=== PATIENT | female | born 1985 | race Caucasian/White ===

== ENCOUNTER → 2024-09-03 | Outpatient (CLI) | payer OTHER, SELFPAY ==
--- NOTE | 2024-09-03 11:28 | XR_ITS ---
Examination: Pelvic ultrasound, transabdominal, complete Technique: Transabdominal ultrasound of the pelvis performed using grayscale imaging Date and time of exam: September 03, 2024 1155 hours INDICATIONS: Pelvic tenderness and vaginal bleeding beginning July 2024 FINDINGS: Uterus 10.4 x 5.1 x 6.3 cm Irregular intrauterine gestational sac 0.7 cm correspondences 6 weeks 4 days gestational age No cardiac motion Right ovary 3.7 x 3.3 cm arterial flow, 22 mm cyst Left ovary 2.0 x 1.9 cm arterial flow IMPRESSION: Empty intrauterine gestational sac corresponding to 6 weeks 4 days gestational age, no pole, no cardiac activity Recommend short-term follow-up examination to exclude demise
== END | disposition home or self-care (01) ==
PROVIDERS: Referring Provider Family Medicine; Visit Provider Family Medicine
DX: N93.9 Abnormal uterine and vaginal bleeding, unspecified (principal)
CPT/HCPCS: 76856

== ENCOUNTER → 2024-09-17 | Outpatient (CLI) | payer OTHER, SELFPAY ==
--- NOTE | 2024-09-17 09:54 | XR_ITS ---
Examination: Pelvic ultrasound, transabdominal, complete Technique: Transabdominal ultrasound of the pelvis performed using grayscale imaging Date and time of exam: September 17, 2024 1018 hours INDICATIONS: Vaginal bleeding beginning 2 weeks ago FINDINGS: Uterus 10.6 x 4.2 x 5.0 cm No intrauterine gestation uterine mass or retained products Endometrial stripe 13 mm Right ovary 4.2 x 2.4 x 3.0 cm arterial flow, 19 mm follicular cyst Left ovary 2.6 x 1.4 x 1.5 cm arterial flow IMPRESSION: No intrauterine gestation, uterine mass or retained products of conception
== END | disposition home or self-care (01) ==
PROVIDERS: PCP Family Medicine; Referring Provider Family Medicine; Visit Provider Family Medicine
DX: N93.9 Abnormal uterine and vaginal bleeding, unspecified (principal)
CPT/HCPCS: 76856

== ENCOUNTER 2024-09-22 06:20 | Emergency (ER) | payer OTHER, SELFPAY ==
--- NOTE | 2024-09-22 06:23 | EKG_ITS ---
[facility] Test Date: 2024-09-22 Pat Name: TU JONES Department: Room: - Gender: Female Server: : 1985 Requested By: ED Temporary Provider Order Number: [id number] Reading MD: ED Temporary Provider Measurements Intervals [place] Rate: 69 P: 58 CO: 147 QRS: 86 QRSD: 86 T: 59 QT: 382 QTc: 409 Interpretive Statements SINUS RHYTHM LOW QRS VOLTAGE IN PRECORDIAL LEADS [QRS DEFLECTION < 1.0 mV IN CHEST LEADS] Compared to ECG 03/04/2023 12:52:34 Low QRS voltage now present /store/S0/[id number].pdf
[2024-09-22 06:30] VITALS: BP 157/103; PULSE 70; RESP 18; TEMP 36.6; O2SAT 99
--- NOTE | 2024-09-22 06:33 | XR_ITS ---
Examination: PA lateral chest 2 views Technique: Upright PA lateral chest 2 views Exam date and time: September 22, 2024 0648 hrs. Comparison: March 04, 2023 Indications: Onset chest pain today Findings: Normal heart size Lungs are clear The osseous structures are intact Impression: No active disease
--- NOTE | 2024-09-22 06:34 | PD.EDRME ---
Rapid Medical Screening Exam RME Arrival date/time: 09/22/24 06:20 38-year-old female with past medical history of elevated troponin presents emergency department complaining of left-sided chest pain that radiates towards left arm she describes as pressure 6 out of 10. Patient reports pain started today after leaving work around 5 am and onset was sudden. Chief Complaint: Chest Pain Time Seen by Provider: 09/22/24 06:26 Vital signs: Vital Signs Temperature 97.9 F 09/22/24 06:30 Pulse Rate 70 09/22/24 06:30 Respiratory Rate 18 09/22/24 06:30 Blood Pressure 157/103 H 09/22/24 06:30 Pulse Oximetry (%) 99 09/22/24 06:30 Oxygen Delivery Method Room Air 09/22/24 06:30 Vital signs reviewed by provider: Yes
--- NOTE | 2024-09-22 07:33 | EDNOTE_ITS ---
ED Chest Pain RME/HPI General Chief Complaint: Chest Pain Stated Complaint: CHEST PAIN Time Seen by Provider: 09/22/24 06:26 Arrival date/time: 09/22/24 06:20 RME / HPI RME / HPI narrative: 09/22/24 06:20 RME: 38-year-old female with past medical history of elevated troponin presents emergency department complaining of left-sided chest pain that radiates towards left arm she describes as pressure 6 out of 10. Patient reports pain started today after leaving work around 5 am and onset was sudden. 38 y/o female who has a history of recurrent chest pain who presents with left- sided chest pain rating to the left arm. Pain is described as a pressure-like sensation that started while at rest when she was driving home. She was driving home from work at the [employer] where she did not exhibit any chest pain during exertion throughout her shift. She denies any recent illness. She has had an elevated troponin in the past that was worked up and otherwise negative. Related Data Previous Rx's ?Medication ?Instructions ?Recorded aspirin 81 mg tablet,delayed 81 mg PO QDAY #30 tabs 03/10/19 release (Arturo Low Dose Aspirin) Allergies Allergy/AdvReac Type Severity Reaction Status Date / Time metronidazole Allergy Severe Rash Verified 03/04/23 12:36 ED Exam Narrative Physical exam: GENERAL APPEARANCE: AxOx4, generally well-appearing, no acute distress. HEENT: NC, AT. MMM. EOMI, clear conjunctiva, oropharynx clear. NECK: Supple without lymphadenopathy. No stiffness or restricted ROM. HEART: Normal rate and regular rhythm, normal S1/S1, no m/r/g LUNGS: CTAB, moving air well. No crackles or wheezes are heard. ABDOMEN: Soft, nontender, nondistended with good bowel sounds heard. BACK: No midline C/T/L spine pain or deformity, No CVAT, no obvious deformity. EXTREMITIES: Without cyanosis, clubbing or edema. MUSCULOSKELETAL: FROM of all major joints, no chest tenderness NEUROLOGICAL: Grossly nonfocal. Alert and oriented, moving all 4 extremities. CN not formally tested but appear grossly intact. Observed to ambulate with normal gait. Skin: Warm and dry without any rash. Course Quality Measures none Orders Category Date Time Status EKG (ED ONLY) *Do not use* NOW Care 09/22/24 06:23 Completed EKG (ED Only) Stat Exams 09/22/24 06:23 Draft XR chest 2V Stat Exams 09/22/24 06:33 Completed Troponin I Stat Lab 09/22/24 07:30 Completed Diazepam [Valium] Med 09/22/24 07:24 Discontinued 5 mg PO X1 ONE Vital Signs Vital signs: Vital Signs Temperature 97.9 F 09/22/24 06:30 Pulse Rate 70 09/22/24 06:30 Respiratory Rate 18 09/22/24 06:30 Blood Pressure 157/103 H 09/22/24 06:30 Pulse Oximetry (%) 99 09/22/24 06:30 Oxygen Delivery Method Room Air 09/22/24 06:30 SpO2 99% on room air, not hypoxic Procedures -ED EKG Interpretation #1: Date of EK09/22/24 Time of EK:33 Rate: 69 Interpretation: Interpreted by me EKG Impression: Normal sinus rhythm, No acute ST-T changes, Normal intervals and Normal axis Chest Pain MDM Narrative MDM Narrative:: 40-year-old otherwise healthy who presents with substernal chest pain. Without utilizing the troponin, heart score is low, but she has had elevated troponin in the past therefore single troponin was ordered in the emerged part with nega tigini. Chest x-ray was ordered via the RME process which on my interpretation shows no acute cardiopulmonary findings, no cardiomegaly, no bony abnormalities, I reviewed the radiology interpretation and agree. Clinically exam is consistent more with anxiety. She is appropriate for outpatient follow-up. Patient data External records reviewed:: [facility] previous records Clinical information provided by:: patient Social determinants that could affect healthcare access:: none Patient has the following chronic illnesses:: none How is presenting disease/condition affected by chronic disease/condition?: no chronic disease Evaluation data The following diagnostics were reviewed and interpreted by me:: lab results and radiology exam(s) Lab and/or radiology exams considered but not ordered:: None Interpretation Summary: As per narrative Medications / Prescriptions Medications or Prescriptions considered but not ordered:: None Medication administrations:: Medication Administration History Discontinued Medications Diazepam (Diazepam 5 Mg Tablet) 5 mg PO X1 ONE Stop: 09/22/24 07:25 Last Admin: 09/22/24 07:45 Dose: 5 mg Documented By: AA Above Consultations Consultation(s) initiated? (list below): No Diagnosis Chest Pain Differential Diagnosis: atypical chest pain, st elevation myocardial infarction, costochondritis and other (Anxiety, GERD) Most likely diagnosis given after review of the tests above:: Chest pain, NOS Admission Indicated Admission indicated?: not indicated Admission Request Was there a request for admission?: No Disposition Plan Disposition Plan: Discharge Discharge Attestation Discharge Attestation: The patient and all family members were given an opportunity to ask questions and understood the discharge instructions. Discharge instructions specifically effects, indications for sooner follow up or return to the emergency department, and the expected course of current diagnosis. Patient condition: Stable Discharge Plan Plan Patient Disposition: HOME (Self Care) Prescriptions/Referrals Prescriptions/Med Rec: No Action aspirin [Arturo Low Dose Aspirin] 81 mg tablet,delayed release (DR/EC) 81 mg PO QDAY Qty: 30 0RF Referrals: Ya Stone MD [Primary Care Provider] - In 1 week Problem List Clinical Impression: Chest pain Patient/Caregiver Discharge Instructions Education Materials: ED Chest Pain, Uncertain Cause Additional Instructions: Follow-up with your primary care doctor in 2 to 3 days if symptoms or not improving. You can return to the emergency department sooner symptoms worsen or if you notice any new, concerning issues. Print Language: Hungarian Stand Alone Forms: Margarita Award Info., Patient Portal Info Letter
[2024-09-22] MEDS: DIAZEPAM 5 MG TABLET PO (07:45)
[2024-09-22 07:51] VITALS: BMI 32.9
[2024-09-22 07:52] VITALS: PULSE 70
--- NOTE | 2024-09-22 07:57 | PC.NURSE ---
Patient presents to ED with c/o nonradiating left side chest pain that began after arriving home from work about 0545 am. Patient is alert and oriented, ambulatory without assistance. Patient with hx of angiogram and angina. Patient placed on press technician, updated with plan of care and call light placed within reach.
[2024-09-22 08:04] LABS: Troponin I < 0.002 ng/mL (0.0-0.045)
[2024-09-22] MEDS: ACETAMINOPHEN 325 MG TABLET 650 MG PO (08:57)
[2024-09-22 09:05] VITALS: BP 107/74; PULSE 72; RESP 19; O2SAT 99
== END 2024-09-22 09:05 | disposition home or self-care (01) ==
PROVIDERS: Emergency Provider Emergency Medicine; PCP Family Medicine
DX: R07.89 Other chest pain (principal)
CPT/HCPCS: 36415; 71046; 80053; 80307; 81001; 83735; 83880; 84484; 84703; 85025; 85610; 85730; 93005; 99283; A9270

== ENCOUNTER 2024-10-24 22:21 | Emergency (ER) | payer OTHER, SELFPAY ==
[2024-10-24 22:22] VITALS: PULSE 83; O2SAT 99
--- NOTE | 2024-10-24 22:30 | PD.EDCHEST ---
ED Chest Pain RME/HPI General Chief Complaint: Chest Pain Stated Complaint: CHEST PAIN Time Seen by Provider: 10/24/24 22:24 Arrival date/time: 10/24/24 22:21 RME / HPI RME / HPI narrative: Dr. Delgado?s Main ED Evaluation: 38yo female with a history of NSTEMI in 2019, recurrent chest pain BIBA from home presents to the ED for a chief complaint of intermittent sharp left-sided chest pain x 1 month. Patient states her chest pain significantly worsened over the last 1-2 hours, reporting it worsens with movement and on palpation, so she came in for evaluation. EMS administered 0.4mg nitroglycerin sublingual en route without improvement of symptoms. Patient denies any shortness of breath, nausea, vomiting, fever, chills or any other associated symptoms. 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 Related Data Previous Rx's ?Medication ?Instructions ?Recorded aspirin 81 mg tablet,delayed 81 mg PO QDAY #30 tabs 03/10/19 release (Arturo Low Dose Aspirin) Allergies Allergy/AdvReac Type Severity Reaction Status Date / Time metronidazole Allergy Severe Rash Verified 03/04/23 12:36 Review of Systems Review of Systems Systems Reviewed: All systems reviewed, normal except as documented Narrative Review of Systems: Gen: No fever, no chills, no weight loss EYES: No discharge, no visual changes, no pain HEENT: No ear pain, no congestion, no sore throat PULM: No shortness of breath, no cough, no congestion CV: + chest pain, no dyspnea on exertion, no palpitations GI: No nausea, no vomiting, no diarrhea, no pain, no constipation : No frequency, no urgency, no dysuria Musc/skel: No joint pain, no back pain Skin: No rash. Warm and dry. Psyc: No hallucinations, no depression Heme/Lymph: No easy bleeding or bruising tendencies Neuro: No weakness, no headache Past Medical History Past Medical History NEUROLOGIC: Negative Neurological Disorders CARDIAC: Positive Myocardial Infarction, Cardiac Arrhythmia, Angina and Hypercholesterolemia; Negative Cardiac Disorders or Congestive Heart Failure RESPIRATORY: Negative Chronic Obstructive Pulmonary Disease (COPD) GASTROINTESTINAL: Positive Gastrointestinal Disorders, Hiatal Hernia and Gastroesophageal Reflux Disease GENITOURINARY: Negative Genitourinary Disorders or Renal Disease REPRODUCTIVE: Positive Previous Pregnancies MUSCULOSKELETAL: Negative Musculoskeletal Disorders ENDOCRINE: Negative Endocrine Disorders, Diabetes Mellitus Type 1 or Diabetes Mellitus Type 2 HEMATOLOGIC: Negative Blood Disorders PSYCHO/SOCIAL: Positive Recreational Drug Use, Depression, Anxiety and Self-Mutilation OTHER HISTORY: Positive Hospitalization Surgical History SURGICAL: Positive Angiogram and Eye Surgery Social History SMOKING STATUS: Never smoker SUBSTANCE USE: does not use ED Exam Narrative Physical exam: GENERAL APPEARANCE: alert and oriented x 4, well-developed, well-nourished, no acute distress VITALS: All vitals were reviewed and the pulse ox is % on room air, which is normal according to my interpretation. HEENT: Normocephalic, atraumatic; pupils equal, round, reactive to light; EOMI; mucous membranes pink, moist; oropharynx clear NECK: Supple LUNGS: CTABL; no wheezes, no rales, no rhonchi HEART: Regular rate, regular rhythm; normal S1, S2; no murmurs; tenderness on palpation of the left pectoralis muscle ABDOMEN: non distended; normal BS; soft, no tenderness, no guarding, no rebound; no masses, no organomegaly, no hernia BACK: no CVA tenderness EXTREMITIES: atraumatic; no edema NEUROLOGIC: awake; alert and oriented x4; cranial nerves II-XII grossly intact; no focal sensory or motor deficits PSYCHIATRIC: appropriate mood and affect SKIN: warm, dry, normal color; no rashes Course Course Course Narrative: CXR is ordered for determining the etiology of chest pain. Quality Measures none Orders Category Date Time Status CT Screening NOW Care 10/24/24 22:42 Completed Web Operations Administrator STAT Care 10/24/24 22:32 Completed Continuous Pulse Oximetry ONCE Care 10/24/24 22:32 Completed EKG (ED ONLY) *Do not use* NOW Care 10/24/24 22:32 Completed Insert IV STAT Care 10/24/24 22:[address] angio chest Stat Exams 10/24/24 22:42 Taken EKG (ED Only) Stat Exams 10/24/24 22:32 Draft XR chest 1V portable Stat Exams 10/24/24 22:32 Completed B-Type Natriuretic Peptide Stat Lab 10/24/24 23:10 Completed CBC Stat Lab 10/24/24 23:10 Completed Comprehensive Metabolic Panel Stat Lab 10/24/24 23:10 Completed HCG,Qualitative Serum Stat Lab 10/24/24 23:10 Completed Lipase Stat Lab 10/24/24 23:10 Completed Magnesium Stat Lab 10/24/24 23:10 Completed Troponin I Stat Lab 10/24/24 23:10 Completed HYDROmorphone INJ [Dilaudid Inj] Med 10/24/24 22:40 Discontinued 0.5 mg IVP X1 ONE Ketorolac Inj [Toradol Inj] Med 10/24/24 22:32 Discontinued 15 mg IVP X1 ONE Ondansetron Inj [Zofran Inj] Med 10/24/24 22:40 Discontinued 4 mg IV X1 ONE Vital Signs Vital signs: Vital Signs Pulse Rate 68 10/24/24 22:45 Chest Pain MDM Narrative MDM Narrative:: Scribe Attestation: 10/24/24 - Khushboo Willis am scribing for and in the presence of Dr. Delgado. Patient data External records reviewed:: [facility] previous records (Per chart review, patient was seen here on 09/22/24 for chest pain.) Clinical information provided by:: patient Social determinants that could affect healthcare access:: none Patient has the following chronic illnesses:: NSTEMI How is presenting disease/condition affected by chronic disease/condition?: uneffected by Evaluation data The following diagnostics were reviewed and interpreted by me:: lab results, radiology exam(s) and EKG tracing(s) Lab and/or radiology exams considered but not ordered:: none Interpretation Summary: CBC is normal, CMP is normal, troponin is normal, HCG is negative, according to my interpretation. EKG done at 2300, NSR, rate of 65, normal axis, no ectopy, no acute ischemia, according to my interpretation. -------- [place] [facility] Report Signed Patient: TU JONES [facility]. Record#: [id number] Birthdate: 1985 Age/Sex: 38 / F Location: [facility] Attending Dr: Ordering Physician: Aurelio Delgado MD Date of Service: 10/24/24 Procedure(s): XR chest 1V portable Accession Number(s): [id number] cc: León Dunbar MD; Orin Cooper; Aurleio Delgado MD~ Examination: AP chest single view TECHNIQUE: AP portable upright chest single view Presented time: October 24, 2024 at 10:45 PM Comparison September 22, 2024 INDICATIONS: Central chest pain today. FINDINGS: Normal heart size The lungs are clear. The osseous structures are intact IMPRESSION: No active disease Dictated By: León Dunbar MD Signed By: <Electronically signed by León Dunbar MD in OV> 10/24/24 2319 [place] Preliminary Report Draft Patient: TU JONES [facility]. Record#: [id number] Birthdate: 1985 Age/Sex: 38 / F Location: [facility] Attending Dr: Ordering Physician: Date of Service: Procedure(s): Accession Number(s): cc: ~ CT angiogram of the chest with intravenous contrast (axial sections with sagittal and coronal reformats): October 25, 2024 at 0002 hours Clinical History: Left sided sharp chest pain x one month. Technique:Helical axial sections with sagittal and coronal reformats of the chest were obtained with intravenous contrast. Iterative reconstruction technique was employed to reduce patient radiation exposure. 3D/MIP reconstructed images were also provided. Contrast Dose: Not available at the time of interpretation. Radiation Dose: Total exam DLP 458 mGy/cm. Comparison: None. Findings: There is no filling defect within the pulmonary artery divisions to suggest pulmonary thromboembolism. The mediastinum demonstrates no evidence of mass or lymphadenopathy. The thoracic aorta is unremarkable. There is no pericardial effusion. The lungs are clear. No evidence of pleural effusion or pneumothorax. The osseous structures are unremarkable. The visualized upper abdominal viscera are unremarkable. Impression: No CT evidence of pulmonary thromboembolism or other acute intrathoracic pathology. Report Electronically Signed By: Juan Luis Kiser 10/25/2024 1:02:58 AM [EST] Medications / Prescriptions Medications or Prescriptions considered but not ordered:: none Medication administrations:: Medication Administration History Discontinued Medications Hydromorphone HCl (Hydromorphone Inj 2 Mg/Ml Vial) 0.5 mg IVP X1 ONE Stop: 10/24/24 22:41 Last Admin: 10/24/24 22:54 Dose: 0.5 mg Documented By: EF Ketorolac Tromethamine (Ketorolac Inj 30 Mg/Ml Vial) 15 mg IVP X1 ONE Stop: 10/24/24 22:33 Last Admin: 10/24/24 22:55 Dose: 15 mg Documented By: EF Ondansetron HCl (Ondansetron Inj 2 Mg/Ml Inj 2 Ml) 4 mg IV X1 ONE; Protocol Stop: 10/24/24 22:41 Last Admin: 10/24/24 22:54 Dose: 4 mg Documented By: EF see above Consultations Consultation(s) initiated? (list below): No Diagnosis Chest Pain Differential Diagnosis: pneumothorax and other (STEMI, NSTEMI, pericarditis, myocarditis, pneumonia, pleurisy) Most likely diagnosis given after review of the tests above:: see below Admission Indicated Admission indicated?: not indicated Admission Request Was there a request for admission?: No Disposition Plan Disposition Plan: Discharge Discharge Attestation Discharge Attestation: The patient and all family members were given an opportunity to ask questions and understood the discharge instructions. Discharge instructions specifically effects, indications for sooner follow up or return to the emergency department, and the expected course of current diagnosis. Patient condition: Stable Discharge Plan Plan Patient Disposition: HOME (Self Care) Disposition Comment: Stable for discharge Patient condition on transfer: Stable Prescriptions/Referrals Prescriptions/Med Rec: No Action aspirin [Arturo Low Dose Aspirin] 81 mg tablet,delayed release (DR/EC) 81 mg PO QDAY Qty: 30 0RF Referrals: Orin Cooper FNP [Primary Care Provider] - In 1 week Problem List Clinical Impression: Atypical chest pain Patient/Caregiver Discharge Instructions Discharge Activity: activity as tolerated Education Materials: ED Chest Pain, Uncertain Cause, ED Pain, Acute, Uncertain Cause Additional Instructions: Please return to the emergency department for any worsening or any further medical problems Follow-up with your primary care doctor within the next several days. Print Language: Citizen Of [place] Stand Alone Forms: Margarita Award Info., Patient Portal Info Letter
--- NOTE | 2024-10-24 22:32 | EKG_ITS ---
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
--- NOTE | 2024-10-24 22:42 | XR_ITS ---
Examination: CTA chest with intravenous contrast 2-D reconstructions 3-D reconstructions, vascular Date and time of exam: October 25, 2024 at 0002 hours INDICATIONS: Sharp left-sided chest pain beginning one month ago CTDI: vol (mGy) and 23.25 DLP: (mGycm) 458 Technique: Multiple axial sections of the thorax have been obtained. 3 mm slice thickness, from below the hemidiaphragms to above the apices of the lungs. Mediastinal and lung density settings have been obtained. 2-D sagittal and coronal reconstructions. 3-D angiographic renderings, 3-D volume renderings, 3D post processing, vascular maximum intensity projections obtained. Contrast administered is 100 cc of Isovue 370. Low dose protocols were performed. One or more of the following dose reduction techniques were used; automated exposure control, adjustment of the mA and/or KV according to patient size, use of iterative reconstruction technique. Findings: No thoracic aortic aneurysmal dilatation or dissection Main pulmonary artery segment 29 mm No pulmonary artery filling defects No paratracheal tracheobronchial bronchopulmonary adenopathy No pneumonia, pulmonary edema or pleural disease No visualized liver or splenic lesion No gallstones No pancreatic or adrenal mass No hydronephrosis Visualized abdominal aorta is not enlarged Mild diffuse thoracic degenerative disc disease IMPRESSION: Negative for pulmonary artery emboli No pneumonia, pulmonary edema or pleural disease
[2024-10-24 22:45] VITALS: PULSE 68; BMI 32.9
[2024-10-24] MEDS: ONDANSETRON INJ 2 MG/ML INJ 2 ML 4 MG IV (22:54)
[2024-10-24] MEDS: HYDROmorphone INJ 2 MG/ML VIAL 0.5 MG IVP (22:54)
[2024-10-24] MEDS: KETOROLAC INJ 30 MG/ML VIAL 15 MG IVP (22:55)
[2024-10-24 23:13] VITALS: BP 117/85; PULSE 63; RESP 12; TEMP 36.5; O2SAT 97
[2024-10-24 23:26] LABS: Basophils # (Auto) 0.1 Thou/mm3 (0.0-0.2); Basophils % (Auto) 1 % (0-2.5); Eosinophils # (Auto) 0.1 Thou/mm3 (0.0-0.5); Eosinophils % (Auto) 1 % (0-10); Hematocrit 38.5 % (36.0-46.0); Hemoglobin 13.3 g/dL (12.0-16.0); Immature Granulocytes % (Auto) 1 % (0-0); Immature Granulocytes Auto 0.04 Thou/mm3 (0.00-0.00); Lymphocytes % (Auto) 25 % (10-50); Mean Corpuscular HGB Conc 34.5 g/dl (31.0-37.0); Mean Corpuscular Hemoglobin 27.5 pg (25.0-35.0); Mean Corpuscular Volume 80 fL (80-100); Monocytes # (Auto) 0.6 Thou/mm3 (0.0-0.8); Monocytes % (Auto) 8 % (0-12); Neutrophils # (Auto) 5.1 Thou/mm3 (1.8-7.7); Neutrophils % (Auto) 65 % (37-80); Nucleated Red Blood Cell % 0 /100 WBC (0); Platelet Count 307 Thou/mm3 (140-440); Red Blood Count 4.83 Miln/mm3 (4.00-5.20); White Blood Count 7.9 Thou/mm3 (3.6-11.0)
[2024-10-24 23:40] LABS: HCG,Qualitative Serum Negative
[2024-10-24 23:42] LABS: B-Type Natriuretic Peptide < 20 pg/mL (0-100)
[2024-10-24 23:43] LABS: Alanine Aminotransferase 33 U/L (10-49); Albumin, Serum 4.2 gm/dL (3.5-5.0); Albumin/Globulin Ratio 1.6 (1.2-2.2); Alkaline Phosphatase 91 U/L (46-116); Anion Gap 8 (7-16); Aspartate Amino Transferase 22 U/L (0-34); BUN/Creatinine Ratio 15 Ratio (12-20); Bilirubin,Total 0.4 mg/dL (0.3-1.2); Blood Urea Nitrogen 12 mg/dL (9-23); Calcium 9.3 mg/dL (8.3-10.6); Calcium (Corrected) 9.3 mg/dL (8.5-10.1); Chloride 105 mMol/L (98-107); Creatinine (Component) 0.8 mg/dL (0.6-1.3); Estimated Creatinine Clearance 103.5 mL/min (>60); Globulin 2.6 gm/dL (2.3-3.5); Glucose 105 mg/dL (74-106); Lipase 34 U/L (12-53); Magnesium 1.7 mg/dL (1.6-2.6); Osmolality,Calculated 275 (275-295); Potassium 3.8 mMol/L (3.4-5.1); Sodium 138 mMol/L (136-145); Total Protein 6.8 gm/dL (5.7-8.2); Troponin I < 0.002 ng/mL (0.0-0.045); eGFR > 60 See Note
--- NOTE | 2024-10-25 01:03 | PRELIM_ITS ---
CT angiogram of the chest with intravenous contrast (axial sections with sagittal and coronal reformats): October 25, 2024 at 0002 hours Clinical History: Left sided sharp chest pain x one month. Technique:Helical axial sections with sagittal and coronal reformats of the chest were obtained with intravenous contrast. Iterative reconstruction technique was employed to reduce patient radiation exposure. 3D/MIP reconstructed images were also provided. Contrast Dose: Not available at the time of interpretation. Radiation Dose: Total exam DLP 458 mGy/cm. Comparison: None. Findings: There is no filling defect within the pulmonary artery divisions to suggest pulmonary thromboembolism. The mediastinum demonstrates no evidence of mass or lymphadenopathy. The thoracic aorta is unremarkable. There is no pericardial effusion. The lungs are clear. No evidence of pleural effusion or pneumothorax. The osseous structures are unremarkable. The visualized upper abdominal viscera are unremarkable. Impression: No CT evidence of pulmonary thromboembolism or other acute intrathoracic pathology. Report Electronically Signed By: Juan Luis Kiser 10/25/2024 1:02:58 AM [EST]
[2024-10-25 01:52] VITALS: BP 137/89; PULSE 60; RESP 16; TEMP 36.5; O2SAT 100
== END 2024-10-25 01:52 | disposition home or self-care (01) ==
PROVIDERS: Emergency Provider Emergency Medicine; PCP Nurse Practitioner Family
DX: R07.89 Other chest pain (principal); I25.2 Old myocardial infarction; E78.00 Pure hypercholesterolemia, unspecified
CPT/HCPCS: 36415; 71045; 71275; 80053; 83690; 83735; 83880; 84484; 84703; 85025; 93005; 96374; 96375; 99285; A4649; J1885; J2405; J3490; Q9967

== ENCOUNTER → 2024-12-18 | Outpatient (CLI) | payer OTHER, SELFPAY ==
--- NOTE | 2024-12-18 13:00 | XR_ITS ---
Examination: Pelvic ultrasound, transabdominal, complete Technique: Transabdominal ultrasound of the pelvis performed using grayscale imaging Date and time of exam: December 18, 2024 1309 hours INDICATIONS: Right pelvic pain beginning 3 months ago FINDINGS: Uterus 9.7 cm endometrial stripe 1.0 cm No uterine mass Right ovary 4.6 cm arterial flow Left ovary 4.7 cm arterial flow 4.7 x 2.6 x 4.0 cm cyst IMPRESSION: Negative for uterine mass Simple left ovarian cyst 4.7 x 2.6 x 4.0 cm
== END | disposition home or self-care (01) ==
LOC: CDIM 12:44
PROVIDERS: PCP Family Medicine; Referring Provider Family Medicine; Visit Provider Family Medicine
DX: N83.292 Other ovarian cyst, left side (principal)
CPT/HCPCS: 76856

== ENCOUNTER 2024-12-22 09:19 | Emergency (ER) | payer OTHER, SELFPAY ==
[2024-12-22 09:46] VITALS: BP 131/87; PULSE 76; RESP 16; TEMP 36.7; O2SAT 98
--- NOTE | 2024-12-22 09:50 | EDRME_ITS ---
Rapid Medical Screening Exam [facility] Arrival date/time: 12/22/24 09:19 CC: I think something is falling out of me HPI patient states for the past 2 days she has felt the sensation in her vaginal area. Patient shows me a picture on her phone that shows swollen soft tissue between the labia. Patient states she has a history of being worked up for a tubal ligation after a miscarriage in August, and had an ultrasound done 1 week ago that showed an ovarian cyst. Patient denies nausea vomiting shortness of breath difficulty breathing but is quite anxious Chief Complaint: Vaginal Bleeding Time Seen by Provider: 12/22/24 09:46 Vital signs: Vital Signs Temperature 98.1 F 12/22/24 09:46 Pulse Rate 76 12/22/24 09:46 Respiratory Rate 16 12/22/24 09:46 Blood Pressure 131/87 H 12/22/24 09:46 Pulse Oximetry (%) 98 12/22/24 09:46
[2024-12-22 10:29] LABS: Collection Type, Urine Clean Catch
[2024-12-22 11:09] LABS: Bilirubin,Urine Negative (Negative); Blood,Urine 2+ (Negative); Color,Urine Yellow (Lt Yel-Yel); Glucose, Urine Negative (Negative); Ketones,Urine Negative (Negative); Leukocyte Esterase,Urine Positive (Negative); Nitrite,Urine Negative (Negative); Protein,Urine 1+ (Neg - Trace); RBC,Urine 324 /hpf (0-3); Specific Gravity,Urine 1.014 (1.001-1.035); Squamous Epithelial Cell,Urine 2 /hpf (0-5); Transitional Epi Cells,Urine 1 /hpf (0-5); Urobilinogen,Urine Negative mg/dL (0.0-1.0); WBC,Urine 1544 /hpf (0-5)
[2024-12-22 11:14] LABS: Clarity,Urine Turbid (Clear/Hazy)
--- NOTE | 2024-12-22 12:00 | EDNOTE_ITS ---
<Statement entered by Blanca Enamorado MD - 12/22/24 17:34> As co-signing physician, I was present and available for consult prn. I concur with the plan and care as documented by the midlevel provider. ED General RME/HPI General Chief complaint: Vaginal Bleeding Stated complaint: VAG PAIN/SWELLING/BLEEDING, DYSURIA, NAUSEA Time Seen by Provider: 12/22/24 09:46 Arrival date/time: 12/22/24 09:19 CC: [facility] RME / HPI RME / HPI narrative: 12/22/24 09:19 CC: I think something is falling out of me HPI patient states for the past 2 days she has felt the sensation in her vaginal area. Patient shows me a picture on her phone that shows swollen soft tissue between the labia. Patient states she has a history of being worked up for a tubal ligation after a miscarriage in August, and had an ultrasound done 1 week ago that showed an ovarian cyst. Patient denies nausea vomiting shortness of breath difficulty breathing but is quite anxious Related Data Previous Rx's ?Medication ?Instructions ?Recorded aspirin 81 mg tablet,delayed 81 mg PO QDAY #30 tabs release (Arturo Low Dose Aspirin) ciprofloxacin HCl 500 mg tablet 500 mg PO BID #14 tabs 12/22/24 (Cipro) Allergies Allergy/AdvReac Type Severity Reaction Status Date / Time metronidazole Allergy Severe Rash Verified 03/04/23 12:36 Review of Systems Review of Systems Narrative Review of Systems: GEN: No fever, no chills, no weight loss EYES: No discharge, no visual changes, no pain HEENT: No ear pain, no congestion, no sore throat PULM: No shortness of breath, no cough, no congestion CV: No chest pain, no dyspnea on exertion, no palpitations GI: No nausea, no vomiting, no diarrhea, no pain, no constipation : No frequency, no urgency, no dysuria MUSC/SKEL: No joint pain, no back pain SKIN: No rash PSYCH: No hallucinations, no depression HEME/LYMPH: No easy bleeding or bruising tendencies NEURO: No weakness, no headache Past Medical History Past Medical History NEUROLOGIC: Negative Neurological Disorders CARDIAC: Positive Myocardial Infarction, Cardiac Arrhythmia, Angina and Hypercholesterolemia; Negative Cardiac Disorders or Congestive Heart Failure RESPIRATORY: Negative Chronic Obstructive Pulmonary Disease (COPD) or Asthma GASTROINTESTINAL: Positive Gastrointestinal Disorders, Hiatal Hernia and Gastroesophageal Reflux Disease GENITOURINARY: Negative Genitourinary Disorders or Renal Disease REPRODUCTIVE: Positive Previous Pregnancies MUSCULOSKELETAL: Negative Musculoskeletal Disorders ENDOCRINE: Negative Endocrine Disorders, Diabetes Mellitus Type 1 or Diabetes Mellitus Type 2 HEMATOLOGIC: Negative Blood Disorders or Sickle Cell Disease PSYCHO/SOCIAL: Positive Recreational Drug Use, Depression, Anxiety and Self- Mutilation OTHER HISTORY: Positive Hospitalization Surgical History SURGICAL: Positive Angiogram and Eye Surgery Social History SMOKING STATUS: Never smoker SUBSTANCE USE: does not use ED Exam Narrative Physical exam: [General: Obese not in cot no acute distress Head normocephalic HEENT: Within acceptable limits Neck is supple nontender Chest equal chest rise nontender to palpation Respiratory: Clear to auscultation no wheezes crackles or rubs CV: Rate rhythm is regular no murmurs rubs or clicks Abdomen is distended secondary to body habitus soft nontender no masses positive bowel sounds all 4 quadrants , external examination of the vaginal opening including the labia minora labia minora just show a small ulceration on the labia minora left side proximal region no surrounding erythema or active bleeding. There are no edematous tissue protruding from the vaginal opening. Urethra is normal in appearance. No active bleeding. Small amount of clear discharge oozing from the vaginal opening. No foul odor. Back: No CVA tenderness no spinous process tenderness from cervical spine thoracic and lumbar spine Skin: Intact no petechiae rash induration ulceration or crepitus Extremities: Moving all extremity against resistance cap refill less than 2 seconds neurosensory intact Neuro: Awake alert oriented x3 Glascow coma 15 no focal deficits] Course Quality Measures none Orders Category Date Time Status Urinalysis Stat Lab 12/22/24 10:18 Completed Ciprofloxacin HCl [Ciprofloxacin] Med 12/22/24 12:00 Once 500 mg PO X1 ONE Vital Signs Vital signs: Vital Signs Temperature 98.1 F 12/22/24 09:46 Pulse Rate 76 12/22/24 09:46 Respiratory Rate 16 12/22/24 09:46 Blood Pressure 131/87 H 12/22/24 09:46 Pulse Oximetry (%) 98 12/22/24 09:46 [facility] Patient data External records reviewed:: [facility] previous records Clinical information provided by:: patient Social determinants that could affect healthcare access:: none Patient has the following chronic illnesses:: None How is presenting disease/condition affected by chronic disease/condition?: uneffected by Evaluation data The following diagnostics were reviewed and interpreted by me:: lab results Lab and/or radiology exams considered but not ordered:: Urine is positive for UTI Interpretation Summary: I suspect the patient has mostly labial irritation with mild edema making her feel like there is something falling out . Patient's urine is positive for UTI at this time patient will be discharged home with ciprofloxacin to follow-up w ith her primary care provider. Medications Medications considered but not ordered:: None Medication administrations:: Medication Administration History Ciprofloxacin (Ciprofloxacin Hcl 250 Mg Tablet) 500 mg PO X1 ONE Stop: 12/22/24 12:01 None Consultations Consultation(s) initiated? (list below): No Diagnosis Differential Diagnosis ED Complaint MDM: UTI urethral irritation Most likely diagnosis given after review of the tests above:: UTI Admission Indicated Admission indicated?: not indicated Explain why admission is indicated or not indicated:: Stable for discharge Admission Request Was there a request for admission?: No Disposition Plan Disposition Plan: Discharge Discharge Attestation Discharge Attestation: The patient and all family members were given an opportunity to ask questions and understood the discharge instructions. Discharge instructions specifically effects, indications for sooner follow up or return to the emergency department, and the expected course of current diagnosis. Patient condition: Stable Medical Decision Making Differential Diagnosis Differential Diagnosis: UTI urethral irritation Lab Data Labs: Lab Results 12/22/24 Range/Units 10:18 Ur Collection Type Clean Catch Urine Color Yellow (Lt Yel-Yel) Urine Clarity Turbid A (Clear/Hazy) Urine pH 6.0 (5.0-7.0) Ur Specific Rosalia 1.014 (1.001-1.035) Urine Protein 1+ A (Neg - Trace) Urine Glucose (UA) Negative (Negative) Urine Ketones Negative (Negative) Urine Blood 2+ A (Negative) Urine Nitrite Negative (Negative) Urine Bilirubin Negative (Negative) Urine Urobilinogen (Auto) Negative (0.0-1.0) mg/dL Ur Leukocyte Esterase Positive (Negative) Urine RBC 324 H (0-3) /hpf Urine WBC 1544 H (0-5) /hpf Ur Squamous Epith Cells 2 (0-5) /hpf Ur Transition Epith Cell 1 (0-5) /hpf Urine Bacteria None (None) Discharge Plan Plan Patient Disposition: HOME (Self Care) Patient condition on transfer: Stable Prescriptions/Referrals Prescriptions/Med Rec: New ciprofloxacin HCl [Cipro] 500 mg tablet 500 mg PO BID Qty: 14 0RF No Action aspirin [Arturo Low Dose Aspirin] 81 mg tablet,delayed release (DR/EC) 81 mg PO QDAY Qty: 30 0RF Referrals: Ya Stone MD [Primary Care Provider] - In 1 week Problem List Clinical Impression: UTI (urinary tract infection) Patient/Caregiver Discharge Instructions Education Materials: ED CYSTITIS Female Adult Print Language: Danish Stand Alone Forms: Margarita Award Info., Patient Portal Info Letter, Work/School Release PA/APPLICATION DEVELOPMENT LIAISON Supervising Physician PA/APPLICATION DEVELOPMENT LIAISON Supervising Physician: Slim Gilliam ENP
[2024-12-22] MEDS: CIPROFLOXACIN HCL 250 MG TABLET 500 MG PO (12:12)
== END 2024-12-22 12:17 | disposition home or self-care (01) ==
PROVIDERS: Registered Nurse General Practice; Emergency Provider Emergency Medicine; PCP Family Medicine
DX: N39.0 Urinary tract infection, site not specified (principal); N83.209 Unspecified ovarian cyst, unspecified side
CPT/HCPCS: 81001; 99283; A9270

== ENCOUNTER 2025-02-15 10:09 | Day surgery (SDC) | payer OTHER, SELFPAY ==
--- NOTE | 2025-02-14 07:00 | EKG_ITS ---
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
[2025-02-14 08:58] LABS: Basophils # (Auto) 0.1 Thou/mm3 (0.0-0.2); Basophils % (Auto) 1 % (0-2.5); Eosinophils # (Auto) 0.1 Thou/mm3 (0.0-0.5); Eosinophils % (Auto) 1 % (0-10); Hematocrit 35.4 % (36.0-46.0); Hemoglobin 12.2 g/dL (12.0-16.0); Immature Granulocytes % (Auto) 0 % (0-0); Immature Granulocytes Auto 0.04 Thou/mm3 (0.00-0.00); Lymphocytes # (Auto) 2.6 Thou/mm3 (1.0-4.8); Lymphocytes % (Auto) 28 % (10-50); Mean Corpuscular HGB Conc 34.5 g/dl (31.0-37.0); Mean Corpuscular Volume 81 fL (80-100); Monocytes # (Auto) 0.7 Thou/mm3 (0.0-0.8); Monocytes % (Auto) 8 % (0-12); Neutrophils # (Auto) 5.7 Thou/mm3 (1.8-7.7); Neutrophils % (Auto) 62 % (37-80); Nucleated Red Blood Cell % 0 /100 WBC (0); Platelet Count 278 Thou/mm3 (140-440); RDW Standard Deviation 37.7 fL (36.4-46.3); Red Blood Count 4.35 Miln/mm3 (4.00-5.20); White Blood Count 9.2 Thou/mm3 (3.6-11.0)
[2025-02-14 09:02] LABS: HCG,Qualitative Serum Negative
[2025-02-14 09:11] LABS: Anion Gap 11 (7-16); BUN/Creatinine Ratio 19 Ratio (12-20); Blood Urea Nitrogen 17 mg/dL (9-23); Carbon Dioxide 24.5 mMol/L (20.0-31.0); Chloride 105 mMol/L (98-107); Creatinine (Component) 0.9 mg/dL (0.6-1.3); Glucose 94 mg/dL (74-106); Osmolality,Calculated 280 (275-295); Potassium 3.4 mMol/L (3.4-5.1); Sodium 140 mMol/L (136-145); eGFR > 60 See Note
[2025-02-14 09:28] LABS: INR 0.9 (0.9-1.3); Prothrombin Time 10.3 Seconds (9.0-12.2)
[2025-02-14 15:41] VITALS: BMI 32.9
[2025-02-15] VITALS (13 sets, daily range): BP systolic 91–139; BP diastolic 67–85; PULSE 57–71; RESP 14–21; TEMP 36.3–36.6; O2SAT 97–100
--- NOTE | 2025-02-15 14:53 | PD.CARDCATH ---
Cardiac Cath Procedure Procedure Name Date of procedure: 02/15/25 ENTRY LEVEL LAB TECHNICIAN: Nima Pires MD PROCEDURE PERFORMED: 1. Left heart cardiac catheterization- Left and right coronary angiograms with LVEDP measurement and left ventriculogram 2. Ultrasound-guided access of the right radial artery 3. Conscious sedation for 30 minutes.. Procedure Narrative HISTORY AND INDICATIONS: A 39 year old female patient with past medical hx of obesity, anxiety, pain due to various vertebral collapses, hiatal hernia, elevated troponin(6 years ago, never seen by the cardiology), NSTEMI [id number] (hospitalized in [facility] but no cardiac catheterization was performed at that time), Dilation and curettage (D&C) and Laparoscopic ovarian cyst reduction/removal, and family history of heart disease as grandparets had stroke and open heart surgery. Patient had ischemic cardiac work up due to complaining of chest pressure and left-sided chest pain radiating to the left arm, and reports two episodes in the last month. She described the chest pain as stabbing and grappling. NST showed There is an area of decreased uptake in the septal and apical segments with stress and improve with rest indicating possible ischemia. EF 50% and TID 1.28.?Patient was brought in for an elective cardiac catheterization. Patient was explained the risk benefits and alternatives of performing a left heart cardiac catheterization including the risk of bleeding, heart attack, stroke and in detail and the agreeable for the procedure. Consent signed, placed in the chart and H&P updated. DESCRIPTION OF PROCEDURE: The patient was brought to the cardiac catheterization lab and all asceptic precautions were followed. Patient was given 1 Mg of Versed and 50 mcg of fentanyl for moderate conscious sedation. 2 mL of lidocaine was given in the right wrist. The right radial artery was accessed via the ultrasound guidance as well as micropuncture technique. A 6 Spanish glide sheath was introduced. We then used a 5 Spanish TIG 4 catheter to perform the left and right coronary angiograms as well as a left ventriculogram which showed the following findings. 1. Left ventricular ejection fraction was normal at 60 to 65% without any regional wall motion abnormalities. LVEDP was normal at 9 mmHg. There was no significant transvalvular aortic gradient. 2. Right dominant circulation 3. Left main artery is a large-caliber vessel gives rise to LAD, LCX and without any significant disease. 4. LAD is a large sized artery with small segment of myocardial bridging in her mid to distal LAD, gives rise to a medium size diagonal and without show any significant disease. 5. LCx is a large sized artery, gives rise to a medium OM1 and small OM2 without any significant disease. 6. RCA is a large artery, gives rise to a medium RPDA and RPL without any significant disease. A radial band was used to achieve the hemostasis of the right radial artery access. Patient will be monitored in the cardiac physicians and surgeons for the next 2 to 3 hours and will be discharged home / telemetry later today if hemodynamically stable. Complications: None Specimens: None Blood loss: Estimated 5-10 ml Summary/findings: 1. 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 2. LVEF normal at 60-65% and LVEDP normal at 10 mmHg. No significant transvalvular aortic gradient. Recommendations: 1. Recommend aggressive medical treatment and aggressive risk factor modification. 2. Recommended no lifting more than 5 pounds for next 7-10 days and follow up in my office in 7 days. Nima Pires MD Interventional Cardiology.
--- NOTE | 2025-02-15 15:13 | PC.NURSE ---
1412 patient is awake, alert, breathing unlabored, s/p LHC by Dr. Pires, TR band present to right wrist, no bleeding or hematoma noted. Report received from Harshad RESENDIZ, patient to stop home medication aspirin. 1512 patient awake, alert, breathing unlabored, patient able to tolerate sandwich and apple juice with no nausea or vomiting. 2ml of air removed from TR band, no bleeding or hematoma noted, report given to Cheyenne RESENDIZ.
== END 2025-02-15 17:10 | disposition home or self-care (01) ==
PROVIDERS: PCP Family Medicine; Referring Provider Internal Medicine Cardiovascular Disease; Visit Provider Internal Medicine Cardiovascular Disease
PROC: (CPT 93458; principal; 2025-02-15 12:30)
DX: R07.89 Other chest pain (principal); R94.39 Abnormal result of other cardiovascular function study; Z82.49 Family history of ischemic heart disease and other diseases of the circulatory system; Z77.22 Contact with and (suspected) exposure to environmental tobacco smoke (acute) (chronic); I34.81 Nonrheumatic mitral (valve) annulus calcification; M54.50 Low back pain, unspecified; F41.9 Anxiety disorder, unspecified; R00.1 Bradycardia, unspecified; E66.9 Obesity, unspecified; Z68.33 Body mass index [BMI] 33.0-33.9, adult; Z01.810 Encounter for preprocedural cardiovascular examination
CPT/HCPCS: 93458; 36415; 80048; 84703; 85025; 85610; 85730; 93005; 99152; 99153; A4649; C1769; C1887; C1894; J0171; J0461; J1643; J2250; J2371; J3010; J3490; Q9967; J2305

== ENCOUNTER 2025-02-24 11:41 | Emergency (ER) | payer OTHER, SELFPAY ==
[2025-02-24 11:42] VITALS: BMI 32.9
[2025-02-24 11:57] VITALS: BP 118/82; PULSE 62; RESP 16; TEMP 36.7; O2SAT 98; BMI 33.1
--- NOTE | 2025-02-24 12:19 | PD.EDRME ---
Rapid Medical Screening Exam [facility] Arrival date/time: 02/24/25 11:41 This is a 39-year-old female that comes in with complaints of vaginal bleeding. Patient states she does not know if she is . Patient recently had a miscarriage in August and states she has not had a period since then. Patient is a 5 para 2 had an with 1 and 2 miscarriages. Patient denies any past medical history. I have greeted and performed a focused initial assessment of this patient. Initial appropriate labs ordered at this time. A comprehensive ED assessment and evaluation of the patient and analysis of all test and completion of medical decision making process will be conducted by additional ED provider. Chief Complaint: Vaginal Bleeding Time Seen by Provider: 02/24/25 12:03 Vital signs: Vital Signs Temperature 98.0 F 02/24/25 11:57 Pulse Rate 62 02/24/25 11:57 Respiratory Rate 16 02/24/25 11:57 Blood Pressure 118/82 02/24/25 11:57 Pulse Oximetry (%) 98 02/24/25 11:57 Oxygen Delivery Method Room Air 02/24/25 11:57
[2025-02-24 12:44] LABS: Basophils % (Auto) 1 % (0-2.5); Eosinophils # (Auto) 0.1 Thou/mm3 (0.0-0.5); Eosinophils % (Auto) 2 % (0-10); Hematocrit 37.3 % (36.0-46.0); Immature Granulocytes % (Auto) 0 % (0-0); Immature Granulocytes Auto 0.02 Thou/mm3 (0.00-0.00); Lymphocytes # (Auto) 1.6 Thou/mm3 (1.0-4.8); Lymphocytes % (Auto) 26 % (10-50); Mean Corpuscular HGB Conc 34.9 g/dl (31.0-37.0); Mean Corpuscular Hemoglobin 27.5 pg (25.0-35.0); Mean Corpuscular Volume 79 fL (80-100); Monocytes # (Auto) 0.5 Thou/mm3 (0.0-0.8); Monocytes % (Auto) 8 % (0-12); Neutrophils % (Auto) 64 % (37-80); Nucleated Red Blood Cell % 0 /100 WBC (0); Platelet Count 332 Thou/mm3 (140-440); RDW Standard Deviation 35.8 fL (36.4-46.3); Red Blood Count 4.73 Miln/mm3 (4.00-5.20); White Blood Count 6.3 Thou/mm3 (3.6-11.0)
[2025-02-24 12:58] LABS: Alanine Aminotransferase 15 U/L (10-49); Albumin, Serum 4.4 gm/dL (3.5-5.0); Albumin/Globulin Ratio 1.8 (1.2-2.2); Alkaline Phosphatase 107 U/L (46-116); Anion Gap 8 (7-16); Aspartate Amino Transferase 13 U/L (0-34); BUN/Creatinine Ratio 13 Ratio (12-20); Bilirubin,Total 0.4 mg/dL (0.3-1.2); Blood Urea Nitrogen 12 mg/dL (9-23); Calcium 8.8 mg/dL (8.3-10.6); Calcium (Corrected) 8.8 mg/dL (8.5-10.1); Carbon Dioxide 26.6 mMol/L (20.0-31.0); Chloride 108 mMol/L (98-107); Creatinine (Component) 0.9 mg/dL (0.6-1.3); Estimated Creatinine Clearance 91.3 mL/min (>60); Globulin 2.4 gm/dL (2.3-3.5); Glucose 96 mg/dL (74-106); Osmolality,Calculated 284 (275-295); Potassium 4.4 mMol/L (3.4-5.1); Sodium 143 mMol/L (136-145); Total Protein 6.8 gm/dL (5.7-8.2); eGFR > 60 See Note
[2025-02-24 13:06] LABS: HCG,Qualitative Serum Negative
[2025-02-24 13:40] LABS: Collection Type, Urine Voided
[2025-02-24 13:54] LABS: Bilirubin,Urine Negative (Negative); Blood,Urine 3+ (Negative); Culture Indicated,Urine Not Indicated; Glucose, Urine Negative (Negative); Ketones,Urine Negative (Negative); Leukocyte Esterase,Urine Positive (Negative); Nitrite,Urine Negative (Negative); PH,Urine 5.5 (5.0-7.0); Protein,Urine Trace (Neg - Trace); RBC,Urine 8325 /hpf (0-3); Specific Gravity,Urine 1.013 (1.001-1.035); Squamous Epithelial Cell,Urine 4 /hpf (0-5); Urobilinogen,Urine Negative mg/dL (0.0-1.0); WBC,Urine 10 /hpf (0-5)
[2025-02-24 13:57] LABS: Color,Urine Red (Lt Yel-Yel)
[2025-02-24 13:58] LABS: Clarity,Urine Turbid (Clear/Hazy)
[2025-02-24 15:18] VITALS: BP 163/88; PULSE 51; RESP 15; TEMP 36.3; O2SAT 99
[2025-02-24 15:20] VITALS: PULSE 67
--- NOTE | 2025-02-24 16:22 | PD.EDVAGBL ---
ED OB Contraction Preg RMI/HPI General Chief complaint: Vaginal Bleeding Stated complaint: VAGINAL BLEEDING Time Seen by Provider: 02/24/25 12:03 Arrival date/time: 02/24/25 11:41 RME / HPI RME / HPI Narrative: 02/24/25 11:41 This is a 39-year-old female that comes in with complaints of vaginal bleeding. Patient states she does not know if she is . Patient recently had a miscarriage in August and states she has not had a period since then. Patient is a 5 para 2 had an with 1 and 2 miscarriages. Patient denies any past medical history. I have greeted and performed a focused initial assessment of this patient. Initial appropriate labs ordered at this time. A comprehensive ED assessment and evaluation of the patient and analysis of all test and completion of medical decision making process will be conducted by additional ED provider. DR. COBOS MAIN ED EVALUATION: 39 year old female A3 presents to the ED for evaluation of vaginal bleeding beginning 3 days ago. Reports amount of blood to be heavy with blood clots and changing pads often (>10 times a day). Accompanied by pelvic cramping which she rates as severe. Reports after her miscarriage 6 months ago, she had not had a menstrual cycle. States she consulted with her OBGYN Dr. Cooper who reported the patient was not ovulating and could possibly have PCOS. States she also was evaluated by PCP Dr. Cooper who started her on control ~ 1 month ago. Patient denies . No other associated symptoms reported. Denies fevers, chills, sweats, chest pain, cough, shortness of breath, or urinary symptoms. Related Data Home Medications ?Medication ?Instructions ?Recorded ?Confirmed atorvastatin 40 mg tablet (Lipitor) 40 mg PO QDAY 02/15/25 02/15/25 norethindrone 1 mg-ethinyl 1 tab PO QDAY 02/15/25 02/15/25 estradiol 20 mcg (24)-iron 75 mg (4) tablet (Lorenza 24 Fe) Allergies Allergy/AdvReac Type Severity Reaction Status Date / Time metronidazole Allergy Severe Rash Verified 02/24/25 11:45 Review of Systems Review of Systems Narrative Review of Systems: Gen: No fever, no chills, no weight loss EYES: No discharge, no visual changes, no pain HEENT: No ear pain, no congestion, no sore throat PULM: no shortness of breath, no cough, no congestion CV: No chest pain, no dyspnea on exertion, no palpitations, no chest tightness GI: No nausea, no vomiting, no diarrhea, +pain, +vaginal bleeding, no constipation : No frequency, no urgency,? no dysuria Musc/skel: No joint pain, no back pain Skin: No rash, no ecchymosis, no lesions Neuro: No weakness, no headache Past Medical History Past Medical History CARDIAC: Positive Cardiac Disorders ([place] 2019), Myocardial Infarction (2019), Cardiac Arrhythmia, Angina and Hypercholesterolemia GASTROINTESTINAL: Positive Gastrointestinal Disorders (gastritis), Hiatal Hernia and Gastroesophageal Reflux Disease REPRODUCTIVE: Positive Previous Pregnancies ENDOCRINE: Positive Endocrine Disorders (low thyroid levels not enough for meds) PSYCHO/SOCIAL: Positive Recreational Drug Use, Depression, Anxiety and Self-Mutilation OTHER HISTORY: Positive Hospitalization Surgical History SURGICAL: Positive Angiogram and Eye Surgery Social History SMOKING STATUS: Never smoker SUBSTANCE USE: does not use ED Exam Narrative Physical exam: GENERAL APPEARANCE: AxOx4, no obvious distress, nontoxic appearing HEENT: NC, AT. MMM. EOMI, clear conjunctiva, oropharynx clear. NECK: Supple without lymphadenopathy. No stiffness or restricted ROM. HEART: Normal rate and regular rhythm, normal S1/S1, no m/r/g LUNGS: CTAB, moving air well. No crackles or wheezes are heard. ABDOMEN: Soft, nontender, nondistended with good bowel sounds heard. BACK: No midline C/T/L spine pain or deformity, No CVAT, no obvious deformity. EXTREMITIES: Without cyanosis, clubbing or edema. MUSCULOSKELETAL: FROM of all major joints, no chest tenderness NEUROLOGICAL: Grossly nonfocal. Alert and oriented, moving all 4 extremities. CN not formally tested but appear grossly intact. Skin: Warm and dry without any rash. Course Quality Measures none Orders Category Date Time Status ABO/RH Type - Stat Lab 02/24/25 12:27 Completed CBC Stat Lab 02/24/25 12:27 Completed Comprehensive Metabolic Panel Stat Lab 02/24/25 12:27 Completed HCG,Qualitative Serum Stat Lab 02/24/25 12:27 Completed Urinalysis, C/S if Indicated Stat Lab 02/24/25 12:41 Completed Vital Signs Vital signs: Vital Signs Temperature 98.0 F 02/24/25 11:57 Pulse Rate 62 02/24/25 11:57 Respiratory Rate 16 02/24/25 11:57 Blood Pressure 118/82 02/24/25 11:57 Pulse Oximetry (%) 98 02/24/25 11:57 Oxygen Delivery Method Room Air 02/24/25 11:57 Pulse ox is 98% on room air which is adequate. Vaginal Bleeding MDM Narrative MDM Narrative: IJasmin am scribing for and in the presence of Dr. Cobos. Patient data External records reviewed:: [facility] previous records (I reviewed ED visit on 12/22/2024 ) Clinical information provided by:: patient Social determinants that could affect healthcare access:: none Patient has the following chronic illnesses:: Hx of previous pregnancies, A2 How is presenting disease/condition affected by chronic disease/condition?: uneffected by Evaluation data The following diagnostics were reviewed and interpreted by me:: lab results Lab and/or radiology exams considered but not ordered:: None Interpretation Summary: Normal H/H, CMP unremarkable Medications / Prescriptions Medications or Prescriptions considered but not ordered:: None Medication administrations:: None Consultations Consultation(s) initiated? (list below): No Diagnosis Vaginal Bleeding Differential Diagnosis: dysfunctional uterine bleeding, menometrorrhagia and vaginal bleeding Most likely diagnosis given after review of the tests above:: Dysfunctional uterine bleednig Admission Indicated Admission indicated?: not indicated Admission Request Was there a request for admission?: No Disposition Plan Disposition Plan: Discharge Discharge Attestation Discharge Attestation: The patient and all family members were given an opportunity to ask questions and understood the discharge instructions. Discharge instructions specifically effects, indications for sooner follow up or return to the emergency department, and the expected course of current diagnosis. Patient condition: Stable Discharge Plan Plan Patient Disposition: HOME (Self Care) Prescriptions/Referrals Prescriptions/Med Rec: No Action Lorenza 24 Fe 1 mg-20 mcg (24)/75 mg (4) tablet 1 tab PO QDAY atorvastatin [Lipitor] 40 mg tablet 40 mg PO QDAY Referrals: Ya Stone MD [Primary Care Provider] - In 1 week Problem List Clinical Impression: Dysfunctional uterine bleeding Patient/Caregiver Discharge Instructions Education Materials: ED Dysfunctional Uterine Bleeding Additional Instructions: Follow-up with your CIRCUITS ENGINEER as scheduled. Feel free return to the emergency department symptoms worsen or if you notice any new, concerning issues. Print Language: Mauritian Stand Alone Forms: Margarita Award Info., Work/School Release, Patient Portal Info Letter
[2025-02-24 16:28] VITALS: BP 141/84; PULSE 52; RESP 18; TEMP 36.4; O2SAT 100
[2025-02-24 16:39] VITALS: BP 141/84
== END 2025-02-24 16:40 | disposition home or self-care (01) ==
PROVIDERS: Nurse Practitioner Family; Emergency Provider Emergency Medicine; PCP Family Medicine
DX: N93.8 Other specified abnormal uterine and vaginal bleeding (principal)
CPT/HCPCS: 36415; 80053; 81001; 84703; 85025; 86900; 86901; 99284

== ENCOUNTER → 2025-07-03 | Outpatient (CLI) | payer BC, SELFPAY ==
--- NOTE | 2025-07-03 14:30 | XR_ITS ---
EXAMINATION: Thyroid sonography complete TECHNIQUE: Grayscale sonographic images thyroid lobes Date and time: July 03, 2025, 1420 hours INDICATIONS: Clinical diagnoses hypothyroidism with weight gain FINDINGS: Right thyroid 4.5 cm No solid nodules Left thyroid 4.4 cm Mid pole 7 x 5 mm nodule IMPRESSION: Small left thyroid nodule
== END | disposition home or self-care (01) ==
LOC: CDIM 14:10
PROVIDERS: PCP Family Medicine; Referring Provider Specialist; Visit Provider Specialist
DX: E04.1 Nontoxic single thyroid nodule (principal)
CPT/HCPCS: 76536